=== PATIENT | female | born 1950 | race Caucasian/White ===

== ENCOUNTER → 2018-04-14 | Outpatient (CLI) | payer MEDICARE, OTHER ==
[~2018-04-14] MED LIST: ASCO500T8 PO; ASPI-621 PO; CALC-534 PO; LEVO88TA4 PO; METO25TA35 PO; MONT10TA6 PO; MULT-516 PO; OMEG-170 PO; OMEP20TA62 PO; POLY17PO5 PO; POTASSIUM PO; SIMV40TA PO; TRAM-47 PO; TYLENOL ARTHRITIS PO
[2018-04-14 14:55] LABS: BASOPHILS # (AUTO) 0.05 x10^3/uL (0-0.1); BASOPHILS % (AUTO) 1 % (0-1); EOSINOPHILS # (AUTO) 0.22 x10^3/uL (0-0.4); EOSINOPHILS % (AUTO) 2 % (1-7); LYMPHOCYTES # (AUTO) 1.83 x10^3/uL (1-3.4); LYMPHOCYTES % (AUTO) 18 % (22-44); MD NO; MEAN CORPUSCULAR HEMOGLOBIN 32.6 pg (27.0-34.8); MEAN CORPUSCULAR HGB CONC 33.8 g/dL (32.4-35.8); MEAN CORPUSCULAR VOLUME 96.5 fL (80-100); MEAN PLATELET VOLUME 8.1 fL (7.4-10.4); MONOCYTES # (AUTO) 0.54 x10^3/uL (0.2-0.8); MONOCYTES % (AUTO) 5 % (2-9); NEUTROPHILS # (AUTO) 7.42 x10^3/uL (1.8-6.8); NEUTROPHILS % (AUTO) 74 % (42-75); PLATELET COUNT 268 x10^3/uL (130-400); RED BLOOD COUNT 4.33 x10^6/uL (3.82-5.3); RED CELL DISTRIBUTION WIDTH 13.2 % (9.6-15.2)
[2018-04-14 14:59] LABS: MICROSCOPIC AUTO
[2018-04-14 15:00] LABS: CULTURE INDICATED? NO
[2018-04-14 15:07] LABS: ANION GAP 7 mmol/L (5-15); CALCIUM 8.5 mg/dL (8.5-10.1); CHLORIDE 106 mmol/L (98-107); CREATININE 0.95 mg/dL (0.55-1.02)
[2018-04-14 15:12] LABS: HEMOGLOBIN A1C 5.6 % (4.2-6.3)
[2018-04-14 15:18] LABS: INTERNATIONAL NORMALIZED RATIO 0.96 (0.93-1.1)
== END | disposition home or self-care (01) ==
LOC: STAR 13:55
PROVIDERS: ATTEND Orthopaedic Surgery
DX: Z01.818 Encounter for other preprocedural examination (principal); M16.12 Unilateral primary osteoarthritis, left hip
CPT/HCPCS: 36415; 80048; 81001; 83036; 85025; 85610; 85730; 87081; 87806; 93005; G0475

== ENCOUNTER 2018-04-21 06:34 | Inpatient (IN) | payer MEDICARE, OTHER ==
[~2018-04-21] VITALS: Ht 170.2 cm; Wt 90.0 kg
[~2018-04-21 06:34] MED LIST changes: +EPINEPHRINE 1 MG/ML, 1ML ONE; +KETOROLAC 60 MG/2 ML ONE; +ROPIvacaine/PF 0.2%, 20 ML ONE; +TRANEXAMIC ACID 100 MG/ML, 10ML ONE
[2018-04-21] MEDS ORDERED: LACTATED RINGERS 1,000 ML IV SCH (07:03)
[2018-04-21] MEDS ORDERED: ACETAMINOPHEN 500 MG TABLET PO ONE (07:30)
[2018-04-21] MEDS ORDERED: GABAPENTIN 300 MG CAPSULE PO ONE (07:30)
[2018-04-21] MEDS ORDERED: FENTANYL PF 250 MCG/5ML ONE (07:54)
[2018-04-21] MEDS ORDERED: MIDAZOLAM 1 MG/ML, 2ML ONE (07:54)
[2018-04-21] MEDS: D5%-0.45NACL+KCL 20MEQ 1,000 ML IV SCH ×2 (08:50→15:15)
[2018-04-21] MEDS ORDERED: ROCURONIUM 10MG/ML,5ML ONE (08:58)
[2018-04-21] MEDS ORDERED: DIAZEPAM 5 MG TABLET PO PRN (09:00)
[2018-04-21] MEDS: DOCUSATE 100 MG CAPSULE PO SCH ×2 (09:00→21:00)
[2018-04-21] MEDS ORDERED: HYDROmorphone 1 MG/ML, 1ML IV PRN ×2 (09:00→10:00)
[2018-04-21] MEDS ORDERED: SENNA/DOCUSATE TABLET PO PRN (09:00)
[2018-04-21] MEDS ORDERED: ONDANSETRON 2MG/ML, 2ML IV PRN (09:00)
[2018-04-21] MEDS ORDERED: ALUMINUM/MAG/SIMETHICONE 30 ML UDC PO PRN (09:00)
[2018-04-21] MEDS ORDERED: MAGNESIUM HYDROXIDE 8%, 30ML UDC PO PRN (09:00)
[2018-04-21] MEDS ORDERED: ACETAMINOPHEN 650 MG/20.3 ML UDC PO PRN (09:00)
[2018-04-21] MEDS: TAMSULOSIN 0.4 MG CAP.ER.24H PO SCH (09:00)
[2018-04-21] MEDS ORDERED: TRANEXAMIC ACID 1,000 MG in SODIUM CHLORIDE 0.9% 100 ML IVPB ONE (09:00)
[2018-04-21] MEDS ORDERED: OXYcodone IR 5MG TABLET PO PRN (09:00)
[2018-04-21] MEDS ORDERED: DIPHENHYDRAMINE 25 MG CAPSULE PO PRN (09:00)
[2018-04-21] MEDS ORDERED: ONDANSETRON 4 MG TABLET PO PRN (09:00)
[2018-04-21] MEDS ORDERED: MEPERIDINE/PF 50 MG/ML ONE (09:42)
[2018-04-21] MEDS ORDERED: CEFAZOLIN 1,000 MG ONE (09:54)
[2018-04-21] MEDS ORDERED: LIDOCAINE GEL 2%, 5ML ONE (09:54)
[2018-04-21] MEDS ORDERED: ONDANSETRON ODT 8 MG ONE ×2 (09:54)
[2018-04-21] MEDS ORDERED: PROPOFOL 10 MG/ML, 20ML ONE (09:54)
[2018-04-21] MEDS ORDERED: LABETALOL 5MG/ML, 20ML ONE (09:54)
[2018-04-21] MEDS ORDERED: DEXAMETHASONE 4 MG/ML, 1ML ONE (09:54)
[2018-04-21] MEDS ORDERED: ONDANSETRON 2MG/ML, 2ML ONE (09:54)
[2018-04-21] MEDS ORDERED: SUCCINYLCHOLINE 20 MG/ML, 10ML ONE (09:54)
[2018-04-21] MEDS ORDERED: METOPROLOL 1 MG/ML, 5ML IV PRN (10:00)
[2018-04-21] MEDS ORDERED: MIDAZOLAM 1 MG/ML, 2ML IV PRN (10:00)
[2018-04-21] MEDS ORDERED: ONDANSETRON ODT 8 MG PO PRN (10:00)
[2018-04-21] MEDS ORDERED: OXYcodone 5 MG/5 ML ORAL.SOL UDC PO PRN (10:00)
[2018-04-21] MEDS ORDERED: EPHEDRINE 50 MG/ML, 1ML IM PRN (10:00)
[2018-04-21] MEDS ORDERED: FENTANYL PF 100 MCG/2ML IV PRN (10:00)
[2018-04-21] MEDS ORDERED: ALBUTEROL/IPRATROPIUM 2.5MG/0.5MG, 3 ML NPPB PRN (10:00)
[2018-04-21] MEDS ORDERED: hydrALAzine 20 MG/ML, 1ML IV PRN (10:00)
[2018-04-21] MEDS ORDERED: MEPERIDINE/PF 25MG/0.5ML IVPush PRN (10:00)
[2018-04-21] MEDS ORDERED: SCOPOLAMINE PATCH, 1.5MG PATCH.TD72 TD PRN (10:00)
[2018-04-21] MEDS ORDERED: PROMETHAZINE 25 MG/ML, 1ML IV PRN (10:00)
[2018-04-21] MEDS ORDERED: OXYcodone 5 MG/5 ML ORAL.SOL UDC ONE (10:47)
[2018-04-21] MEDS ORDERED: FENTANYL PF 100 MCG/2ML ONE (10:47)
[2018-04-21 12:35] VITALS: BP 157/63
[2018-04-21] MEDS: CEFAZOLIN PMX 1GM/50ML 50 ML IVPB SCH (17:54)
[2018-04-21] MEDS: METOPROLOL TARTRATE 25 MG TABLET PO SCH ×2 (17:54→18:00)
[2018-04-21] MEDS: ASPIRIN 81 MG TABLET EC PO SCH (17:55)
[2018-04-21 17:57] VITALS: BP 147/60
[2018-04-21 19:52] VITALS: BP 119/69
[2018-04-22 00:05] VITALS: BP 121/71
[2018-04-22] MEDS: D5%-0.45NACL+KCL 20MEQ 1,000 ML IV SCH ×2 (00:50→08:19)
[2018-04-22] MEDS: CEFAZOLIN PMX 1GM/50ML 50 ML IVPB SCH (01:43)
[2018-04-22 04:04] VITALS: BP 136/64
[2018-04-22] MEDS: METOPROLOL TARTRATE 25 MG TABLET PO SCH (05:28)
[2018-04-22] MEDS: ASPIRIN 81 MG TABLET EC PO SCH (05:28)
[2018-04-22] MEDS ORDERED: LEVOTHYROXINE 88 MCG TABLET PO SCH (06:00)
[2018-04-22] MEDS ORDERED: DEXAMETHASONE 4 MG/ML, 1ML IVPush SCH (06:00)
[2018-04-22 06:35] VITALS: BP 118/56
[2018-04-22] MEDS ORDERED: OMEPRAZOLE 20 MG CAPSULE.DR PO SCH (07:30)
[2018-04-22] MEDS: DOCUSATE 100 MG CAPSULE PO SCH (08:19)
[2018-04-22] MEDS: TAMSULOSIN 0.4 MG CAP.ER.24H PO SCH (08:19)
[2018-04-22] MEDS ORDERED: KETOROLAC 30 MG/1 ML IV SCH (09:00)
[2018-04-22] MEDS ORDERED: MONTELUKAST 10 MG TABLET PO SCH (09:00)
[2018-04-22] MEDS ORDERED: ASPI-621 PO (09:09)
[2018-04-22] MEDS ORDERED: ONDA4TAB10 PO (09:10)
[2018-04-22] MEDS ORDERED: DOCU-131 PO (09:12)
[2018-04-22] MEDS ORDERED: CELE200C PO (09:12)
[2018-04-22] MEDS ORDERED: TRAM50TA2 PO (09:14)
[2018-04-22] MEDS ORDERED: DIAZ5TAB PO (09:15)
[2018-04-22] MEDS ORDERED: OXYC5CAP2 PO (09:16)
== END 2018-04-22 11:35 | disposition home or self-care (01) | DRG 470 ==
LOC: ORIP 06:34 → 4NOR 11:48 → DCLOUNGE 04-22 11:12
PROVIDERS: ADMIT Orthopaedic Surgery; ATTEND Orthopaedic Surgery
PROC: 0SRB03Z Replacement of Left Hip Joint with Ceramic Synthetic Substitute, Open Approach (ICD-10-PCS; principal; 2018-04-21 09:00)
DX: M16.12 Unilateral primary osteoarthritis, left hip (principal); Z88.5 Allergy status to narcotic agent; M21.70 Unequal limb length (acquired), unspecified site; Z79.899 Other long term (current) drug therapy
CPT/HCPCS: 36415; 72170; 85014; 85018; 86850; 86900; C1713; J0171; J0690; J1100; J1885; J2175; J2250; J2405; J2704; J2795; J3010; Q0162; C1776; J0330; J3480; J7120